=== PATIENT | male | born 2000 | race Native Hawaiian/Other Pacific Islander ===

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

== ENCOUNTER 2021-06-16 11:06 | Emergency (ER) | payer BC, OTHER ==
[~2021-06-16] VITALS: Ht 170.2 cm; Wt 60.8 kg
[2021-06-16 11:09] VITALS: BP 144/94
[2021-06-16] MEDS ORDERED: ketorolac trometh. 30mg/ml inj. IM ONE (11:35)
[2021-06-16] MEDS ORDERED: orphenadrine citrate 60mg/2ml inj. IM ONE (11:35)
[2021-06-16] MEDS ORDERED: CYCL-1 PO (12:36)
[2021-06-16] MEDS ORDERED: IBUP-1985 PO (12:36)
== END 2021-06-16 13:05 | disposition home or self-care (01) ==
LOC: ER 11:07
DX: M54.50 Low back pain, unspecified (principal); M54.6 Pain in thoracic spine; M25.512 Pain in left shoulder; Z79.899 Other long term (current) drug therapy; V89.2XXA Person injured in unspecified motor-vehicle accident, traffic, initial encounter; Y93.89 Activity, other specified; Y92.89 Other specified places as the place of occurrence of the external cause; Y99.8 Other external cause status
CPT/HCPCS: 72100; 96372; 99284; J1885; J2360

== ENCOUNTER 2021-06-21 11:09 | Emergency (ER) | payer BC, OTHER ==
[~2021-06-21] VITALS: Ht 170.2 cm; Wt 60.0 kg
[~2021-06-21 11:09] MED LIST: CYCL-1 PO; IBUP-1985 PO
[2021-06-21 11:25] VITALS: BP 160/77
== END 2021-06-21 12:29 | disposition home or self-care (01) ==
LOC: ER 11:09
DX: S39.012A Strain of muscle, fascia and tendon of lower back, initial encounter (principal); Z79.899 Other long term (current) drug therapy; V89.2XXA Person injured in unspecified motor-vehicle accident, traffic, initial encounter; Y93.89 Activity, other specified; Y92.89 Other specified places as the place of occurrence of the external cause; Y99.8 Other external cause status
CPT/HCPCS: 99281

== ENCOUNTER 2022-10-13 22:49 | Emergency (ER) | payer BC, OTHER ==
[~2022-10-13] VITALS: Ht 170.2 cm; Wt 59.1 kg
[2022-10-13 22:54] VITALS: BP 121/76
--- NOTE | 2022-10-14 00:47 | NUR ---
PT SOAKING WOUND IN BETADINE AND NS SOLUTION
[2022-10-14] MEDS ORDERED: HYDROcodone/acetaminophen 5mg/325mg tablet PO ONE (00:55)
[2022-10-14] MEDS ORDERED: ceFAZolin/D5W- 1GM premix 50 ML IV ONE (01:03)
[2022-10-14] MEDS ORDERED: ondansetron/PF 4mg/2ml inj IV ONE (01:50)
[2022-10-14] MEDS ORDERED: HYDROcodone/acetaminophen 5mg/325mg tablet PO STA (03:00)
[2022-10-14] MEDS ORDERED: ibuprofen tablet 400 MG TABLET PO STA (03:00)
[2022-10-14] MEDS ORDERED: AMOX-117 PO (03:09)
[2022-10-14] MEDS ORDERED: SULF1TAB49 PO (03:09)
== END 2022-10-14 03:32 | disposition home or self-care (01) ==
LOC: ER 22:50
DX: S61.432A Puncture wound without foreign body of left hand, initial encounter (principal); F17.200 Nicotine dependence, unspecified, uncomplicated; Z79.899 Other long term (current) drug therapy; W54.0XXA Bitten by dog, initial encounter; Y93.9 Activity, unspecified; Y92.89 Other specified places as the place of occurrence of the external cause; Y99.8 Other external cause status
CPT/HCPCS: 96374; 96375; 99284; J0690; J2405

== ENCOUNTER 2023-01-10 17:24 | Emergency (ER) | payer BC, OTHER ==
[~2023-01-10] VITALS: Ht 170.2 cm; Wt 54.8 kg
[~2023-01-10 17:24] MED LIST changes: +AMOX-117 PO
[2023-01-10 17:47] VITALS: TEMP 98.4
[2023-01-10 19:31] VITALS: BP 128/73; PULSE 63; O2SAT 100
[2023-01-11] MEDS ORDERED: acetaminophen 325mg tablet PO ONE (02:15)
[2023-01-11] MEDS ORDERED: sulfamethoxazole/trimethoprim DS (800/160mg) tablet PO ONE (02:15)
[2023-01-11] MEDS ORDERED: TETanus/Pertussis (Acell)/Diphther VAC/PF (Tdap-Adult) 0.5ml syringe IMVAC ONE (02:15)
[2023-01-11] MEDS ORDERED: ondansetron 4mg rapidly disintigrating tab PO ONE (02:15)
[2023-01-11] MEDS ORDERED: bacitracin 15gm ointment TP ONE (02:15)
[2023-01-11] MEDS ORDERED: ketorolac trometh. 30mg/ml inj. IM ONE (02:15)
[2023-01-11] MEDS ORDERED: SULF1TAB49 PO (02:21)
[2023-01-11 02:42] VITALS: RESP 18
== END 2023-01-11 02:56 | disposition home or self-care (01) ==
LOC: ER 17:26
DX: S61.432A Puncture wound without foreign body of left hand, initial encounter (principal); Z79.899 Other long term (current) drug therapy; X58.XXXA Exposure to other specified factors, initial encounter; Y93.89 Activity, other specified; Y92.89 Other specified places as the place of occurrence of the external cause; Y99.8 Other external cause status
CPT/HCPCS: 73130; 90471; 90715; 96372; 99284; J1885; A6449

== ENCOUNTER 2023-03-16 13:20 | Emergency (ER) | payer BC, OTHER ==
[~2023-03-16] VITALS: Ht 170.2 cm; Wt 59.4 kg
--- NOTE | 2023-03-16 14:22 | NUR ---
LAURE IN ROOM FOR AMOS.
--- NOTE | 2023-03-16 14:24 | NUR ---
MSE COMPLETE BY LAURE BOATENG.
[2023-03-16 16:16] VITALS: BP 128/74; PULSE 88; RESP 16; TEMP 97.8; O2SAT 100
== END 2023-03-16 16:18 | disposition home or self-care (01) ==
LOC: ER 13:20
DX: R05.9 Cough, unspecified (principal)
CPT/HCPCS: 71045; 99283